=== PATIENT | female | born 2000 | race Two or more races ===

== ENCOUNTER 2019-07-13 17:01 | Emergency (ER) | payer MEDICAID ==
[~2019-07-13] VITALS: Ht 157.5 cm; Wt 47.6 kg
[2019-07-13 17:30] VITALS: BP 117/93
[2019-07-13] MEDS ORDERED: LIDOCAINE W/ EPINEPHRINE 2% INJ 20ML VIAL IJ ONE (19:15)
== END 2019-07-13 19:46 | disposition home or self-care (01) ==
LOC: ER 17:01
DX: S51.812A Laceration without foreign body of left forearm, initial encounter (principal); W26.9XXA Contact with unspecified sharp object(s), initial encounter; Y93.89 Activity, other specified; Y99.8 Other external cause status; Y92.89 Other specified places as the place of occurrence of the external cause
CPT/HCPCS: 12002; 73090